=== PATIENT | male | born 1970 | race Caucasian/White ===

== ENCOUNTER 2017-10-07 07:21 | Day surgery (SDC) | payer OTHER ==
[2017-10-07] MEDS ORDERED: LACTATED RINGERS 1,000 ML IV ONE ×2 (08:06→10:05)
[2017-10-07] MEDS ORDERED: ceFAZolin 2 GM/50 ML 2 GM/50 ML BAG IV ONE (08:17)
[2017-10-07] MEDS ORDERED: BUPIVACAINE 0.5% PF 10 ML VIAL ONE (08:30)
[2017-10-07] MEDS ORDERED: LIDOCAINE-MPF 2% 5 ML VIAL IM ONE (09:00)
[2017-10-07] MEDS ORDERED: DEXAMETHASONE 4 MG/ML VIAL IVP ONE (09:00)
[2017-10-07] MEDS ORDERED: ONDANSETRON 4 MG/2 ML VIAL IVP ONE (09:00)
[2017-10-07] MEDS ORDERED: KETOROLAC 30 MG/ML VIAL IVP ONE (09:00)
[2017-10-07] MEDS ORDERED: ACETAMINOPHEN 1,000 MG/100 ML 100 ML IV ONE (09:00)
[2017-10-07] MEDS ORDERED: PROPOFOL 200 MG/20 ML VIAL IVP ONE (09:00)
[2017-10-07] MEDS ORDERED: ROCURONIUM 50 MG/5 ML VIAL IVP ONE (09:00)
[2017-10-07] MEDS ORDERED: PHENYLEPHRINE 10 MG/ML VIAL IV ONE (09:00)
[2017-10-07] MEDS ORDERED: fentaNYL 100 MCG/2 ML VIAL IVP ONE (09:00)
[2017-10-07] MEDS ORDERED: SUCCINYLCHOLINE 200 MG/10 ML VIAL IVP ONE (09:00)
[2017-10-07] MEDS ORDERED: GLYCOPYRROLATE 1 MG/5 ML VIAL IVP ONE (09:00)
[2017-10-07] MEDS ORDERED: NEOSTIGMINE 1 MG/1 ML 10 ML MDV IVP ONE (09:00)
[2017-10-07] MEDS ORDERED: KETAMINE 500 MG/10 ML VIAL IVP ONE (09:00)
[2017-10-07] MEDS ORDERED: BUPIVACAINE 0.5% PF 10 ML VIAL SUBQ ONE (09:44)
--- NOTE | 2017-10-07 11:11 | OPERATIVE REPORT ---
Operative Report - General Procedure Date: 10/07/17 Planned Procedure: TEP right inguinal herniorrhaphy and bilateral vasectomy Pre-Op Diagnosis: Right inguinal hernia and desire for vasectomy Procedure Performed: TEP right indirect inguinal herniorrhaphy using mesh and bilateral vasectomy Post Op Diagnosis: Right indirect inguinal hernia, right cord lipoma and desire for vasectomy - Procedure Note Primary Surgeon: Jones Zamora MD Secondary Surgeon: Eliseo Connell MD Anesthesia Provider: Andrea Fam CRNA Anesthesia Technique: General ET tube, Local (30 ml 1/2% marcaine) IV Fluids (mL): 1,500 Estimated Blood Loss (mL): 15 Complications: None. - Other Other Information/Narrative: OPERATIVE DESCRIPTION/REPORT: After verbal and written informed consent was obtained detailing the risks of infection, bleeding requiring transfusion with its risks, nerve injury, and , and after I met with the patient confirming the surgery and the site of the surgery, the patient was brought to the operative suite and placed supine on the operating table. Great care was taken to avoid pressure points to prevent pressure necrosis or nerve injury. Monitoring devices were applied along with TEDs and pneumatic compressive stockings (to prevent DVT). The patient received preoperative antibiotics for surgical prophylaxis. Andrea Fam sedated and induced general anesthesia and provided anesthesia care for the entirety of the case. The patient was prepped and draped in the usual sterile manner. With the patient draped my initials were clearly visible. A "time in" then confirmed that the patient was identified with 3 identifiers ( name, date and medical record number), the history and physical was in the chart, the signed consent confirming the procedure was in the chart, the patient was in the correct position, the aforementioned prophylactic measures were in place or given, we had the correct personnel and equipment to complete the procedure and that anesthesia, surgery and nursing were given an opportunity to express any concerns. With the agreement of everyone in the room , we proceeded with the operation. A transverse skin incision was made below the umbilicus to a length of approximately 3 cm. The incision was carried through the subcutaneous tissue. Bleeders were cauterized. The right rectus sheath was identified and incised lateral to the midline. The preperitoneal space was then developed following insertion of a round balloon and then a Spacemaker balloon, which was inflated under direct vision. Following removal of the Spacemaker balloon, a #10 trocar was placed in the preperitoneal space and the preperitoneal space was insufflated with CO2 to a steady state pressure of 15 mmHg. A 10 mm 30 degree laparoscope was inserted in the preperitoneal space. Two #5 trocars were placed 5 cm below the umbilicus and just medial to the epigastric vessels bilaterally under direct vision and without incident. Landmarks including symphysis pubis, right and left Edmar ligaments and right and left inferior epigastric vessels were identified. Dissection was then continued lateral to the transverse abdominis muscle bilaterally. The right inferior epigastric vessels were "hanging" down into the operative field and obstructing my view so I clipped and divided the branches that allowed the right epigastric vessels to retract out of my way. The right side was addressed first and dissection at the internal ring revealed the vas deferens. The vas deferens was cleared for about 1 inch and doubly clipped proximally and distally and one inch of the vas deferens was excised. This specimen was sent to pathology for evaluation and identification. The left side was addressed in the exact same manner and the piece of vas deferens was sent to pathology separately. On the right the internal ring was then explored for the presence of the indirect hernia sac and this was reduced under direct vision with traction and counter-traction. A moderate size cord lipoma was also dissected back. Exploration of the medial space showed no medial defect suggesting the presence of an early or small direct hernia. A Covidien ProGrip (Ref#[id number], Lot# [id number], use by date 2020-01-02) was placed. The mesh covered the internal ring as well as a potential direct hernia site. 30 mL of 1/2% Marcaine was injected at the skin, and subcutaneous tissues for longer term pain control. The preperitoneal space was then deflated and during the deflation the mesh was watched to ensure that it was sandwiched nicely in place and did not change position. All trocars were withdrawn. The defect in the rectus sheath was closed with a [id number] 0 Vicryl suture. The skin incisions were closed with subcuticular 4-0 Monocryl suture. The prep was washed off and Mastisol and Steristrips were applied at all the incisions. At this point a time out was performed that confirmed that all the counts were correct, the procedure that was performed, the blood loss, the IV fluids administered, and the patients condition. The prep was washed off and Benzoin and Steristrips were applied. Having tolerated the procedure well, the patient was subsequently extubated and taken to recovery room in good and stable condition.
[2017-10-07] MEDS ORDERED: HYDROmorphone 1 MG/ML SYRINGE ONE (11:49)
[2017-10-07] MEDS ORDERED: oxyCOD/ACETAMIN 5 MG/325 MG TABLET PO ONE (12:18)
[2017-10-07 13:14] VITALS: BP 133/79
== END 2017-10-07 07:22 | disposition home or self-care (01) ==
LOC: SDS 07:21
PROVIDERS: ATTEND Surgery
PROC: 0VTQ0ZZ Resection of Bilateral Vas Deferens, Open Approach (ICD-10-PCS; 2017-10-07)
PROC: 0YU54JZ Supplement Right Inguinal Region with Synthetic Substitute, Percutaneous Endoscopic Approach (ICD-10-PCS; principal; 2017-10-07 08:30)
DX: K40.90 Unilateral inguinal hernia, without obstruction or gangrene, not specified as recurrent (principal); Z30.2 Encounter for sterilization; D17.6 Benign lipomatous neoplasm of spermatic cord; F32.9 Major depressive disorder, single episode, unspecified; F17.210 Nicotine dependence, cigarettes, uncomplicated; F41.9 Anxiety disorder, unspecified; G47.30 Sleep apnea, unspecified
CPT/HCPCS: 49650; 55250; A9270; C1781; J0131; J0330; J0690; J1170; J7120

== ENCOUNTER 2018-03-15 05:18 | Emergency (ER) | payer OTHER ==
[2018-03-15 05:26] VITALS: BP 135/89
[2018-03-15] MEDS ORDERED: PROPARACAINE 0.5% OPHTH DROPS 15 ML EACHEYE STA (05:31)
[2018-03-15] MEDS ORDERED: ERYTHROMYCIN OPHTH OINT 1 GM TUBE RIGHTEYE STA (05:46)
--- NOTE | 2018-03-15 05:49 | ED Physician Documentation ---
PD HPI OPHTHO - Stated complaint Stated Complaint: RT EYE PAIN - Chief complaint Chief Complaint: Heent - History obtained from History obtained from: Patient - History of Present Illness Timing - onset: Yesterday Timing - duration: Days (2 days) Timing - details: Constant Severity Comments: moderate Location: Right Associated symptoms: FB sensation Contributing factors: Other (The patient was cleaning his garage and working on his car yesterday, afterwards he developed pain in his eye and attempted to flush the foreign body) Similar symptoms before: No diagnosis Recently seen: Not recently seen Review of Systems Eyes: reports: Photophobia, Irritation. denies: Loss of vision, Decreased vision, Discharge Ears: denies: Ear pain GI: denies: Nausea Neurologic: denies: Headache Immunocompromised: denies: Chemotherapy PD PAST MEDICAL HISTORY - Past Medical History Past Medical History: Yes Cardiovascular: None Respiratory: Sleep apnea, CPAP use Endocrine/Autoimmune: None GI: None : None HEENT: None Psych: Depression, Anxiety Musculoskeletal: None Derm: None - Past Surgical History Past Surgical History: Yes HEENT: Other - Present Medications Home Medications: Ambulatory Orders Medication Instructions Recorded Confirmed Duloxetine HCl 60 mg PO DAILY 10/06/17 10/07/17 Ropinirole HCl 1 mg PO DAILY 10/06/17 10/07/17 Erythromycin Base [Erythromycin 1 gm OP BID 5 Days #1 oint...g. 03/15/18 Ophthalmic Ointment] - Allergies Allergies/Adverse Reactions: Allergies Allergy/AdvReac Type Severity Reaction Status Date / Time No Known Drug Allergies Allergy Verified 03/15/18 05:25 - Social History Does the pt smoke?: Yes Smoking Status: Current every day smoker Does the pt drink ETOH?: Yes Does the pt have substance abuse?: No - Immunizations Immunizations are current?: Yes - POLST Patient has POLST: No PD ED PE NORMAL - General General: Alert and oriented X 3, No acute distress - HEENT HEENT: Atraumatic, Pharynx benign - Respiratory Respiratory: No respiratory distress - Neuro Neuro: Alert and oriented X 3, Normal speech - Psych Psych: Normal mood, Normal affect PD ED PE EXPANDED - HEENT HEENT Visual: 1 - deformity (A small metallic foreign body embedded in the cornea) - Eyes Eyes: PERRL, EOMI, Right eye, Injected conj/sclera, Corneal FB, Anterior chambers clear. No: Eyelid swelling, Eyelid erythema, Hyphema, Ant chamber cells/flare Results - Vitals Vitals: Vital Signs - 24 hr 03/15/18 05:20 Temperature 36.0 C L Heart Rate 100 Respiratory 19 Rate Blood Pressure 135/89 H O2 Saturation 98 Oxygen O2 Source Room air Procedures - FB removal FB location: Other (Right eye) FB removal preparation: Local anesthesia-specify Removal method: Other (A wet Q-tip was used to gently remove the metallic foreign body. The foreign body was removed successfully. There was a retained rust ring still embedded in the cornea) FB removal aftercare: Removed successfully PD MEDICAL DECISION MAKING - ED course ED course: The metallic foreign body was removed, a resting was present. The patient currently appears appropriate for discharge and follow-up with ophthalmology. The patient is active duty and reports [place] I recommended follow-up on Friday. The patient will be treated in the meantime with erythromycin ointment. I discussed warning signs and recommended returning to the emergency department immediately for worsening or any concerns. - Sepsis Event Vital Signs: Vital Signs - 24 hr 03/15/18 05:20 Temperature 36.0 C L Heart Rate 100 Respiratory 19 Rate Blood Pressure 135/89 H O2 Saturation 98 Oxygen O2 Source Room air Departure - Departure Disposition: 01 Home, Self Care Clinical Impression: Foreign body, eye Qualifiers: Encounter type: initial encounter Laterality: right Qualified Code(s): T15.91XA - Foreign body on external eye, part unspecified, right eye, initial encounter Condition: Good Instructions: ED Foreign Body Cornea W Rust Ring Follow-Up: Dorian Hayes MD [Provider Admit Priv/Credential] - Amadou Durand MD [Provider Admit Priv/Credential] - Reuben Singleton MD [Provider Admit Priv/Credential] - Prescriptions: Erythromycin Base [Erythromycin Ophthalmic Ointment] 1 gm OP BID 5 Days #1 oint...g. Comments: Please follow-up with ophthalmology on Friday to have the rust ring removed. Please either call the financial assistance advisor listed to schedule appointment or please [place]. Please return to the emergency department immediately for worsening symptoms or any concerns
== END 2018-03-15 05:59 | disposition home or self-care (01) ==
LOC: ED 05:18
DX: T15.01XA Foreign body in cornea, right eye, initial encounter (principal); W22.8XXA Striking against or struck by other objects, initial encounter; Y92.015 Private garage of single-family (private) house as the place of occurrence of the external cause; F17.200 Nicotine dependence, unspecified, uncomplicated
CPT/HCPCS: 65220; 99283; J3490